=== PATIENT | female | born 1950 | race Caucasian/White ===

== ENCOUNTER 2025-06-13 15:17 | Outpatient (AMB) | payer MEDICARE, BC, SELFPAY ==
--- OUTSIDE RECORDS SUMMARY | 2023-11-04 10:45 | XMS_ITS | Continuity of Care Document ---
Author Organization [facility] Address [address], [address] [address] [place] [address] Phone Care Team Providers Care Getter Welder Name Role Phone Darin Mike MD Unavailable Unavailable Darin Mike MD Unavailable Unavailable Allergies, Adverse Reactions, Alerts Substance Reaction Status Criticality PHENYLEPHRINE HCL Active No Informa tion Penicillins DifficultyBreathing Active No Infor mation Medications Medication Instructions Dosage Effective Dates (start - stop) Status Comments NORLIQVA (unknown strength) Not Available - Active POTASSIUM GLUCONATE (unknown strength) Not Available - Active NEXIUM (unknown strength) Not Available - Active MILK THISTLE (unknown strength) Not Available - Active MAGNESIUM (unknown strength) Not Available - Active GABAPENTIN (unknown strength) Not Available - Active CRANBERRY (unknown strength) Not Available - Active ATORVALIQ (unknown strength) Not Available - Active ARTHRITIS HOT PAIN RELIEF (unknown strength) Not Available - Active ALLOPURINOL (unknown strength) Not Available - Active Procedures Procedure Date NASAL/SINUS ENDOSCOPY, SURG OFFICE/OUTPATIENT VISIT, [facility] Advance Directives Directive Yes / No Effective Date File Name No Information Encounters Encounter Description Practice Location Reason(s) For Visit Diagnoses Date Provider Providers Copied on Encounter OFFICE/OUTPAT IENT VISIT, [facility], [address], [address] [address], [place], [place], [id number], [place] tel:[phone] [facility] Nosebleed (chief complaint) EpistaxisDeviated septum Rashid Webster. [address] [address], [place], [place], [id number] , [place]. tel: [phone] Consulting Provider: Darin Mike MD M, [address] [address], [place], [address]. tel:[phone] Family History Family Member Type Diagnosis Age At Onset Sister Problem (finding) Hypertension Mother Problem (finding) Stroke Sister Problem (finding) Cancer Sister Problem (finding) Cardiovascular disease Mother Problem (finding) Cancer Mother Problem (finding) Hyperthyroidism Father Problem (finding) Cancer Payers Payer name Insurance type Covered constitution party ID Clementine briseno(s) [facility] [id number] Social History Type Description Quantity Date Captured Comments Alcohol Use Details Unknown Caffeine Use Details Unknown Tobacco Use Status No Information Smoking Status No Information Sex Female Vital Signs Date / Time: Height Weight BMI Pulse Rate Blood Pressure Temperature Respiratory Rate Body Surface Area Head Circumference Head Circ. Percentile Wt./Raphael. Percentile BMI percentile Pulse Ox Inhaled Ox 2:51 PM 70.00 in 118.841 kg (262.00 lbs) 37.5 9 kg/m eter (2) 2.42 meter(2) Chief Complaint And Reason For Visit From encounter dated '11/04/2023 14:45'. Nosebleed (chief complaint) Reason For Referral Reason For Referral No Information History Of Present Illness Encounter Date Complaint History Of Prese nt Illness Nosebleed Functional Status Date Functional Assessmen t No Information Instructions Date Instruction Additional Infor mation No Information Assessments Type Assessment Date assessment Epistaxis assessment Deviated septum Mental Status Date Cognitive Assessment Normal Orientation Patient Care Teams Name Effective Dates (start - stop) Status Members No Information
--- NOTE | 2025-06-13 15:44 | A.OFFPC_ITS ---
Vital Signs 06/13/25 16:05 Height 4 ft 11 in Weight 120 lb BMI 24.2 BP 122/72 Blood Pressure Location Rt brachial Position Sitting Respiration 12 Pulse 82 Pulse Source Pulse Oximeter Temp 97.9 F Temp Source Oral Pulse Oximetry (%) 98 Oxygen Delivery Method Room Air Intake Visit Reasons: CPE? Intake Note: New patient visit Neighborhood Aide Required: No Allergies No Known Allergies Allergy (Verified 06/13/25 16:02) Tobacco use date assessed: 06/13/25 Fall risk assessment: No Falls in past year Last assessed Fall Risk: 06/13/25 Dental Screening Dental Screen Date: 06/13/25 Did you have a dental visit in the last 12 months?: Yes Did you have a dental problem in the last 6 months where you did not have access to dental care?: No Was dental information given to patient?: Patient has dentist HPI HPI Comments History of Present Illness Details The patient is a 74 year old female with a past medical hsitory of ADHD, depression, pernicious anemia, melanoma, urinary incontinence, rosacea, osteopenia presenting to [facility]. Transfer from [facility]. Seen in December. Prior to this [facility] ADHD on wellbutrin. Still has c/o fatigue brain fog, fatigue Happy dermatology-h/o right arm melanoma. Q4 months Osteopenia-was on evista. Follows with GI-Dr Huggins. Pernicious anemia. On B12 supplement Cognitive change-saw [facility] ger[facility] clinic. Had MRI with chronic small vessel disease. 09/2024. She then saw the [facility] and was told she was doing well and no follow up was necessary Opthalmology [facility] History of endometrial ablation 2004. Does not see gynecology anymore EG/Colonoscopy Dr Huggins 2020-5 year recall Stopped mammos in 2017 DXA 10/01/2023-osteopenia pCV 13 2020 Pneumo 23 in 2018 Had flu and COVID vaccine 04/2025 ROS CONSTITUTIONAL: Denies weight loss, fever and chills. HEENT: Denies changes in vision and hearing. RESPIRATORY: Denies SOB and cough. CV: Denies palpitations and CP GI: Denies abdominal pain, nausea, vomiting and diarrhea. : Denies dysuria and urinary frequency. MSK: Denies new myalgia and joint pain. SKIN: Denies rash and pruritus. NEUROLOGICAL: Denies headache PSYCHIATRIC: Denies recent changes in mood. PHYSICAL EXAM: GENERAL: Alert and oriented x 3. NAD EYES: EOMI. Anicteric. HENT: Moist mucous membranes. No scleral icterus. No cervical lymphadenopathy. LUNGS: Clear to auscultation bilaterally. CARDIOVASCULAR: Regular rate and rhythm.+ No murmur. No JVD. ABDOMEN: Soft, non-tender +bs EXTREMITIES: No edema. Non-tender. SKIN: No rashes or lesions. Warm. NEUROLOGIC: No focal neurological deficits. CN II-XII grossly intact PSYCHIATRIC: Cooperative. Appropriate mood and affect [facility] Social History Housing: House Patient Tobacco Use Status: Never used Tobacco e-Cigarette/Vaping Use: Never Used Second Hand Smoke Exposure: No service: No Current occupational status: employed and retired Cognitive needs: No Hearing needs: No Vision needs: No Questionnaire PHQ-9 Over the last 2 weeks, how often have you been bothered by any of the following problems? 1. Little interest or pleasure in doing things: not at all 2. Feeling down, depressed, or hopeless: not at all 3. Trouble falling or staying asleep, or sleeping too much: not at all 4. Feeling tired or having little energy: several days 5. Poor appetite or overeating: several days 6. Feeling bad about yourself - or that you are a failure or have let yourself or your family down: not at all 7. Trouble concentrating on things, such as reading the newspaper or watching television: several days 8. Moving or speaking so slowly that other people could have noticed. Or the opposite - being so fidgety or restless that you have been moving around a lot more than usual: not at all 9. Thoughts that you would be better off or of hurting yourself in some way: not at all Total score: 3 Depression Screening Interpretation: Negative Depression Screening Done: Yes 09815 - PHQ-9 Billing: Yes Source: Developed by Drs. Nils Clark, Gifty Valdes, Kevin Jernigan and colleagues, with an educational janes from [employer]. Thrive Questionnaire Date Thrive assessed: 06/06/25 I am a: Patient What is your living situation today?: I have a steady place to live Within the past 12 months, did the food you bought not last and you didn't have the money to get more?: Never true Within the past 12 months, did you worry whether your food would run out before you got money to buy more?: Never true Do you have trouble paying for medicines?: No Do you have trouble getting transportation to medical appointments?: No Do you have trouble paying your heating and electricity bill?: No Do you have trouble taking care of your child, family member or friend?: No Do you have trouble with day-to-day activities such as bathing, preparing meals, shopping, managing finances, etc.?: No Are you currently unemployed and looking for a job?: No Are you interested in more education?: No Please select the resources that you would like help with: None Currently or been in a relationship where the following occur: No concerns reported THRIVE Score: 0 AUDIT C Alcohol Use Questionnaire (AUDIT-C) 1. How often do you have a drink containing alcohol?: Never 3. How often do you have six or more drinks on one occasion?: Never Total Score: 0 FLOR[place]-7 AMB Questionnaire FLOR[place]-7 Feeling nervous, anxious, or on edge: 0 = Not at all Not being able to stop or control worryin = Not at all Worrying too much about different things: 0 = Not at all Trouble relaxin = Not at all Being so restless that it is hard to sit still: 0 = Not at all Becoming easily annoyed or irritable: 0 = Not at all Feeling afraid as if something awful might happen: 0 = Not at all Total [place]-7 score (0-4 normal; 5-9 mild; 10-14 moderate; 15-21 severe): 0 Source: Developed by Drs. Nils Clark, Gifty Valdes, Kevin Jernigan and colleagues, with an educational janes from [employer]. Physical exam (Primary Care) Vital Signs: Last Vital Signs Temp 97.9 F 06/13/25 16:05 Pulse 82 06/13/25 16:05 Resp 12 06/13/25 16:05 BP 122/72 06/13/25 16:05 Pulse Ox 98 06/13/25 16:05 Oxygen Delivery Method Room Air 06/13/25 16:05 BMI result Body Mass Index 24.2 Tobacco/Smoking Status: Tobacco use Status Tobacco use date assessed 06/13/25 06/13/25 16:08 Patient Tobacco Use Status Never used Tobacco 06/13/25 16:08 e-Cigarette/Vaping Use Never Used 06/13/25 16:08 PHQ-9: PHQ-9 Score PHQ-9: Total score 3 06/13/25 16:08 Depression Screening Interpretation: Negative Thrive Assessment: Date of Thrive Assessment Date Thrive assessed 06/06/25 06/13/25 15:44 Currently or been in a relationship where the following occur: No concerns reported Coding Level of Care Code New Pt Level 4 (57766) Complex EM visit Add On G2211 Diagnoses Establishing care with new doctor, encounter for Z76.89 Attention deficit hyperactivity disorder (ADHD), unspecified ADHD type F90.9 Attention deficit-hyperactivity disorder type: unspecified Heart murmur R01.1 Brain fog R41.89 Osteopenia, unspecified location M85.80 Osteopenia location: unspecified Pernicious anemia D51.0 Additional Codes PHQ-9 - 81313 - PHQ-9 Billing: Yes ([id number]) Assessment & Plan Assessment & Plan (1) Establishing care with new doctor, encounter for: Code(s): Z76.89 - Persons encountering health services in other specified circumstances (2) ADHD: Code(s): F90.9 - Attention-deficit hyperactivity disorder, unspecified type Category: Medical Qualifiers: Attention deficit-hyperactivity disorder type: unspecified Qualified Code(s): F90.9 - Attention-deficit hyperactivity disorder, unspecified type (3) Heart murmur: Code(s): R01.1 - Cardiac murmur, unspecified Category: Medical (4) Brain fog: Code(s): R41.89 - Other symptoms and signs involving cognitive functions and awareness Category: Medical (5) Osteopenia: Code(s): M85.80 - Other specified disorders of bone density and structure, unspecified site Category: Medical Qualifiers: Osteopenia location: unspecified Qualified Code(s): M85.80 - Other specified disorders of bone density and structure, unspecified site (6) Pernicious anemia: Code(s): D51.0 - Vitamin B12 deficiency anemia due to intrinsic factor deficiency Category: Medical Plan 74 year old female to establish care Past medical, surgical, social reviewed Depression has been stable on wellbutrin Percinious anemia-continue b12. Check levels. referral placed GI Heart murmur-baseline echo ordered. Orders: Orders XR DEXA axial skeleton 4 Months M85.80 - Other specified disorders of bone density and structure, unspecified site Vitamin B12 and Folate 06/13/25 D51.0 - Vitamin B12 deficiency anemia due to intrinsic factor deficiency, F90.9 - Attention-deficit hyperactivity disorder, unspecified type, R41.89 - Other symptoms and signs involving cognitive functions and awareness, Z13.220 - Encounter for screening for lipoid disorders, Z13.228 - Encounter for screening for other metabolic disorders Vitamin D 1,25 dihydroxy 06/13/25 D51.0 - Vitamin B12 deficiency anemia due to intrinsic factor deficiency, F90.9 - Attention-deficit hyperactivity disorder, unspecified type, R41.89 - Other symptoms and signs involving cognitive functions and awareness, Z13.220 - Encounter for screening for lipoid disorders, Z13.228 - Encounter for screening for other metabolic disorders IRON PROFILE 06/13/25 D51.0 - Vitamin B12 deficiency anemia due to intrinsic factor deficiency, F90.9 - Attention-deficit hyperactivity disorder, unspecified type, R41.89 - Other symptoms and signs involving cognitive functions and awareness, Z13.220 - Encounter for screening for lipoid disorders, Z13.228 - Encounter for screening for other metabolic disorders Hemoglobin A1c 06/13/25 D51.0 - Vitamin B12 deficiency anemia due to intrinsic factor deficiency, F90.9 - Attention-deficit hyperactivity disorder, unspecified type, R41.89 - Other symptoms and signs involving cognitive functions and awareness, Z13.220 - Encounter for screening for lipoid disorders, Z13.228 - Encounter for screening for other metabolic disorders CA echo transthoracic complete 06/13/25 R01.1 - Cardiac murmur, unspecified Lipid Panel 06/13/25 D51.0 - Vitamin B12 deficiency anemia due to intrinsic factor deficiency, F90.9 - Attention-deficit hyperactivity disorder, unspecified type, R41.89 - Other symptoms and signs involving cognitive functions and awareness, Z13.220 - Encounter for screening for lipoid disorders, Z13.228 - Encounter for screening for other metabolic disorders TSH reflex Free T4 06/13/25 D51.0 - Vitamin B12 deficiency anemia due to intrinsic factor deficiency, F90.9 - Attention-deficit hyperactivity disorder, unspecified type, R41.89 - Other symptoms and signs involving cognitive functions and awareness, Z13.220 - Encounter for screening for lipoid disorders, Z13.228 - Encounter for screening for other metabolic disorders Complete Blood Count Auto Diff 06/13/25 D51.0 - Vitamin B12 deficiency anemia due to intrinsic factor deficiency, F90.9 - Attention-deficit hyperactivity disorder, unspecified type, R41.89 - Other symptoms and signs involving cognitive functions and awareness, Z13.220 - Encounter for screening for lipoid disorders, Z13.228 - Encounter for screening for other metabolic disorders Comprehensive Met. Panel 06/13/25 D51.0 - Vitamin B12 deficiency anemia due to intrinsic factor deficiency, F90.9 - Attention-deficit hyperactivity disorder, unspecified type, R41.89 - Other symptoms and signs involving cognitive functions and awareness, Z13.220 - Encounter for screening for lipoid disorders, Z13.228 - Encounter for screening for other metabolic disorders Lyme IgG/IgM w/reflex to WB 06/13/25 D51.0 - Vitamin B12 deficiency anemia due to intrinsic factor deficiency, F90.9 - Attention-deficit hyperactivity disorder, unspecified type, R41.89 - Other symptoms and signs involving cognitive functions and awareness, Z13.220 - Encounter for screening for lipoid disorders, Z13.228 - Encounter for screening for other metabolic disorders UA CC w/rflx Micro + Cult 06/13/25 D51.0 - Vitamin B12 deficiency anemia due to intrinsic factor deficiency, F90.9 - Attention-deficit hyperactivity disorder, unspecified type, R41.89 - Other symptoms and signs involving cognitive functions and awareness, Z13.220 - Encounter for screening for lipoid disorders, Z13.228 - Encounter for screening for other metabolic disorders MM tomosynthesis screening BI 06/13/25 Z12.31 - Encounter for screening mammogram for malignant neoplasm of breast Referrals Gastroenterology Referral K63.5 - Polyp of colon, Z12.11 - Encounter for screening for malignant neoplasm of colon
[2025-06-13 16:05] VITALS: BP 122/72; PULSE 82; RESP 12; TEMP 36.6; O2SAT 98; BMI 24.2
--- OUTSIDE RECORDS SUMMARY | 2025-06-13 19:44 | XMS_ITS | Patient Health Record ---
Author Organization [facility] Address [address] [place] [address] Support Name Relationship Address Phone AMI IGNACIO Guarantor Unknown [phone] Reason For Referral No Information Medications Medication SIG (Take, Route, Fr equency, Duration) Notes Start Date End Date Status Vagifem 10MCG 1 Vaginal TWICE A WE EK; Duration: -3 Alberto-MJ 07/28/2011 Active Adderall 30MG 1 ORAL DAILY; Duration: -3 Alberto-MJ 1 Active Wellbutrin SR 150MG 1 ORAL twice daily; Duration: -3 Alberto-MJ 07/28/2011 Active Vitamin D3 1000 IU 1 ORAL daily; Duration: -3 Alberto-MJ 07/17 Active Vitamin B-12 100MCG 1 ORAL DAILY; Duration: -3 Alberto-MJ 07/2011 Active Problems Problem Type SNOMED Code ICD Code Onset Dates Problem Status W/U Status Risk Notes Problem Depressive disorder (55506578) Depressive disorder, not elsewhere classified (311) Active confirmed Major Problem Menopausal symptom (07645920) Symptomatic menopausal or female climacteric states (627.2) Active confirmed Major Problem Postmenopausal atrophic vaginitis (38795007) Postmenopausal atrophic vaginitis (627.3) Active confirmed Diag Problem Gynecological examination normal ([id number]) Routine gynecological examination (V72.31) Active confirmed Major Problem Screening for malignant neoplasm of colon (843803564) Special screening for malignant neoplasms, colon (V76.51) Active confirmed Major Plan Of Treatment No Information
--- OUTSIDE RECORDS SUMMARY | 2025-06-13 19:44 | XMS_ITS | Clinical Summary ---
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 Active raloxifene (EVISTA) 60 mg tablet Take 60 mg by mouth daily. Active buPROPion (WELLBUTRIN XL) 150 MG ER 24 hr tablet Take 150 mg by mouth daily. Active cholecalciferol (VITAMIN D3) 10,000 unit tablet Take 10,000 Units by mouth daily. Active Active Problems Problem Noted Date Diagnosed Date Memory change 04/27/2025 Encounters Date Type Department Care Team Description 04/27/2025 10:30 AM EDT Office Visit [facility] [address] [place] [address] Nabor Power DO Memory change (Primary Dx); Encounter for geriatric assessment; Encounter for medication review; Snoring; Encounter for support to caregiver from Last 3 Months Social History Tobacco Use Types Packs/Day Years Used Date Smoking Tobacco: Never Smokeless Tobacco: Never Tobacco Cessation:Counseling Given: Not Answered Alcohol Use Standard Drinks/Week Comments Never 0 (1 standard drink = 0.6 oz pur e alcohol) Education Answer Date Recorded Are you interested in more education? Not on ernesto e 10/12/2023 Are you concerned about learning? Not on file 10/12/2023 No 10/12/2023 No 10/12/2023 Digital Access Answer Date Recorded No 10/12/2023 No 10/12/2023 Reliable internet access at home? Not on file 10/12/2023 Device with a working camera? Not on file Intimate Partner Violence Answer Date R ecorded Are you denied basic needs s uch as food, clothing, or medical care? No 10/12/2023 In the past 12 months have y ou been in a relationship with a person who hurts, threatens, or tries to control you? No 10/12/2023 Are you denied basic needs s uch as food, clothing, or medical care? No 10/12/2023 In the past 12 months have y ou been in a relationship with a person who hurts, threatens, or tries to control you? No 10/12/2023 Comments Unknown Sex and Gender Information Value Date Recorded Sex Assigned at Female 10/12/2023 7:46 PM EST Legal Sex Female 1:18 PM EDT Gender Identity Female 10/12/2023 7:46 PM EST Sexual Orientation Straight 10/12/2023 7: 46 PM EST Last Filed Vital Signs Vital Sign Reading Time Taken Comments Blood Pressure 108/60 04/27/2025 10:33 AM EDT Pulse 75 04/27/2025 10:33 AM EDT Temperature 37.1 C (98.8 F) 10/12/2023 7:31 PM EST Respiratory Rate 20 10/12/2023 7:31 PM EST Oxygen Saturation 100% 04/27/2025 10:33 AM EDT Inhaled Oxygen Concentration - - Weight 53.5 kg (118 lb) 04/27/2025 10:33 AM EDT Height 149.9 cm (4' 11 ) 10/12/2023 7:31 PM EST Body Mass Index 23.83 10/12/2023 7:31 PM EST Plan of Treatment Health Maintenance Due Date Last Done Comments Adult Td,Tdap Booster 1952 LIPID PANEL 1952 HEPATITIS C SCREENING 1970 MAMMOGRAM 1992 COLOGUARD 1997 COLONOSCOPY 1997 COLORECTAL CANCER SCREENING 1997 FIT TEST 1997 FOBT 1997 SIGMOIDOSCOPY 1997 VIRTUAL COLONOSCOPY 1997 PNEUMOCOCCAL VACCINES (50+ years) (1 of 1 - PCV) 2002 ZOSTER VACCINES (1 of 2) 2002 OSTEOPOROSIS SCREENING INITI AL (ONE-TIME) 2017 INFLUENZA VACCINE (#1) 2025 COVID-19 VACCINE (1 - 2024-2 6 season) 2025 DEPRESSION SCREENING 04/26/2026 04/26/2025, 04/26/2025 RSV VACCINE (1 - 1-dose 75+ series) 12/09/2027 SMOKING STATUS SCREENING (On ce After 26 Yrs) Completed 04/27/2025 HEPATITIS A VACCINES Aged Out No long er eligible based on patient's age to complete this topic HIB VACCINES Aged Out No longer eligi ble based on patient's age to complete this topic MENINGOCOCCAL VACCINES (ACWY) Aged Out No longer eligible based on patient's age to complete this topic MENINGOCOCCAL VACCINES (B) Aged Out N o longer eligible based on patient's age to complete this topic Medical Devices Not on file Insurance [employer] SUPPLEMENT MEDICARE PART A & B Member Subscriber Plan / Payer (Ef fective 2020-Present) Name:Laina Valdes Member ID:[id number] Relation to Subscriber:Self Name:Laina Valdes Subscriber ID:[id number] Payer ID:[id number] Group ID:Not on file Type:Medicare Address: [facility] [employer] [facility] [address] [place] [address] [employer] MEDEX SUPPLEMENT MEDICARE PART A & B Member Subscriber Plan / Payer (Ef fective 2020-Present) Name:Laina Valdes Member ID:[id number] Relation to Subscriber:Self Name:Laina Valdes Subscriber ID:[id number] Payer ID:[id number] Group ID:Not on file Type:Medicare Address: [facility] [employer] [facility] [address] [place] [address] [employer] MEDEX SUPPLEMENT [employer] SUPPLEMENT [employer] MEDEX SUPPLEMENT MEDICARE PART A & B [employer] MEDEX SUPPLEMENT MEDICARE PART A & B Member Subscriber Plan / Payer (Ef fective 2020-Present) Name:Laina Valdes Member ID:[id number] Relation to Subscriber:Self Name:Laina Valdes Subscriber ID:[id number] Payer ID:[id number] Group ID:Not on file Type:Medicare Address: [employer] [address] [place] [address] MEDEX SUPPLEMENT MEDICARE PART A & B Member Subscriber Plan / Payer (Ef fective 2020-Present) Name:Laina Valdes Member ID:[id number] Relation to Subscriber:Self Name:Laina Valdes Subscriber ID:[id number] Payer ID:[id number] Group ID:Not on file Type:Medicare Address: [facility] [employer] [facility] [address] [place] [address] [employer] MEDEX SUPPLEMENT [employer] MEDEX SUPPLEMENT MEDICARE PART A & B Care Teams Graining Operator Relationship Specialty Start Date End Date Shaniqua Rockwell MD [address] [place] [address] [id number] PCP - General Internal Medicine 04/27/25 Nabor Power DO [address] [place] [phone] [email or web address] Geriatric Medicine 04/14/25 [facility] [address] [address] Nurse Practitioner 04/27/25 Additional Source Comments The information contained in this document represents components of the legal health record. It is not the complete legal health record.[facility]
--- OUTSIDE RECORDS SUMMARY | 2025-06-13 19:44 | XMS_ITS | Data Portability ---
Author Organization [place] [facility],, NELLY BURNETTE MD Address [address] [address] Care Team Providers Care External Relations Manager Name Role Phone NIK ONEAL OTHER Assessment No assessment recorded. Plan of Treatment Reminders Order Date Submit Date Provider Last Modified By Organization Details Last Modified Time Details Appointments None recorded. Lab pap test, thinprep, cervical 2016 017 [facility] Pathology [facility], Cytopathology Service, [address] [place], [address], 7 15:40:54 fecal occult blood, stool 2016 017 [facility]O In-Office Order, Internal Use Only DO Not Attach Compendium DO Not Attach Compendium, Do Not Delete/merge, [id number] 7 09:17:58 cytology, Pap smear 2012 013 [facility] Pathology [facility], Cytopathology Service, [address] [place], [address], 3 05:14:34 occult blood, screen 2012 013 HYDRO In-Office Order, Internal Use Only DO Not Attach Compendium DO Not Attach Compendium, Do Not Delete/merge, [id number] 3 05:14:35 Referral None recorded. Procedures None recorded. Surgeries None recorded. Imaging MAMMO, screening , digital, bilateral 2016 017 [facility] Orders, [address], [place], [address], 7 17:54:07 bone density 2016 017 [facility] Orders, [address], [place], [address], 7 16:57:16 MAMMO, screening , digital, bilateral 2012 013 [facility] Orders, [address], [place], [address], 3 17:29:56 bone density study 2012 013 [facility] Orders, [address], [place], [address], 3 17:28:50 Medication Orders raloxifen e 60 mg tablet 2016 017 INTERFACE [id number], [address] [facility], [place], [address], 7 15:28:12 Patient TargetsNo targets recorded. Patient Instructions Encounter Date Encounter Id Patient Instructions Last Modified By Organization Details Last Modified Time 02/15/2013 [id number] learning about breast cancer screening MARIA ISABEL Not available 03/11/2013 05:14:35 She appears to b e doing well, other than the depression, weight loss and fatigue. She will follow up with her PCP concerning the fatigue and weight loss. She has not had a bone density test, will order. She is advised to get 1500 mg of calcium daily into her diet and supplements combined. There is a health benefit with adequate vitamin D supplementation to at least 400 units daily, daily aerobic exercise of 30 minutes, and stress reduction. Monthly self breast exam was taught, and stressed, and is advised to call if she discovers any new mass in the breast. Seat belt use for herself and passengers are advised. There are significant health benefits of becoming and remainig fit, with an optimal BMI. There is a potential reduction in chronic discomfort, diminished risks of hypertension, diabetes, and heart disease with the proper weight management. With a recommended BMI there can be improved mobility as she ages. Strategies to reach and maintain her target weight were discussed in detail. Not available 02/15/2013 15:51:22 03/22/2013 [id number] We discussed her new diagnosis of osteopenia. We reviewed the results of her bone density test, with reference to the computer images. We discussed the way that standard deviation is used for diagnosis, and what this means to her as she ages. Adequate calcium intake of 1500 mg daily, weight bearing exercise three times a week, and vitamin D supplementation of at least 400 units daily is suggested. She is advised to avoid tobacco, coffee, and steroids if possible. Benefits of an active lifestyle discussed as well. All questions answered. We discussed the different forms of medical treatment for osteoporosis, in case she might need this in the future. She will repeat the bone density testing in 2 years to assess her progress.She is aware that if her bone density diminished significantly in the intervening 2 years she may need medical therapy at that time. She is encouraged to try this preventive therapy first. Return for routine annual exam as scheduled. Face to face discussion for 25 minutes. Not available 03/23/2013 11:30:45 12/01/2016 [id number] learning about m ood disorders [email or web address] Not available 12/01/2016 09:14:01 She is here for annual exam, has not been here since 2012. She feels well. She has a history of vitamin d deficiency and osteopenia, is due for a bone density. She does take vitramin d 2000 unitls on and off, not daily. Check bone density. She declines vitanin d check at this time. She notes she has shortness of breath when climbing a stair, and her brother has SOB also. Advised to check with her PCP to see if she should be tested for alpha one antitrip. def. She appears to be doing well. She is advised to get 1500 mg of calcium daily into her diet and supplements combined. There is a health benefit with adequate vitamin D supplementation to at least 400 units daily, daily aerobic exercise of 30 minutes, and stress reduction. Monthly self breast exam was taught, and stressed, and is advised to call if she discovers any new mass in the breast. Seat belt use for herself and passengers are advised. There are significant health benefits of becoming and remainig fit, with an optimal BMI. There is a potential reduction in chronic discomfort, diminished risks of hypertension, diabetes, and heart disease with the proper weight management. With a recommended BMI there can be improved mobility as she ages. Strategies to reach and maintain her target weight were discussed in detail. Not available 12/01/2016 09:36:08 01/16/2017 [id number] She is here to discuss her recent bone density which showed progressively worsening osteopennia over the past 10 years. She has lost one inch in height so far. We discussed her diagnosis of worsening osteopenia. We reviewed the results of her bone density test, with reference to the computer images. We discussed the way that standard deviation is used for diagnosis, and what this means to her as she ages. Adequate calcium intake of 1500 mg daily, weight bearing exercise three times a week, and vitamin D supplementation of at least 400 units daily is suggested. She is advised to avoid tobacco, coffee, and steroids if possible. Benefits of an active lifestyle discussed as well. All questions answered. We discussed the different forms of medical treatment for osteoporosis, in case she might need this in the future. She gets adequate calcium, takes vitamin d daily, exercised and does weight lifting dailoy, has no risk factors to amend. After discussion of her worsening results despite doing everything right she elects to begin Evista. We discussed having her begin to take hormone replacement therapy. .We discussed the stated risks of one in 10,000 of development of a blood clot/DVT/PE that could be life threatening. After a long discussion of the potential risks and benefits of HRT she elects to begin HRT. All questions answered. Rx for Evista is called in to the pharmacy. Call if any vaginal bleeding occurs upon initiation of HRT, or at any time postmenopausally. She will repeat the bone density testing in 2 years to assess her progress.She is aware that if her bone density diminished significantly in the intervening 2 years she may need to increase medical therapy at that time.. Return for routine annual exam as scheduled. Face to face discussion for 25 minutes. Not available 01/16/2017 15:32:44 Reason for Referral None Reported. Results Created Date Observation Date Name Description Value Unit Range Abnormal Flag Note LastModifiedBy Organization Detail LastModifiedTime 12/02/19 17 12/01/2016 fecal occul t blood , stool Occult Blood negati ve Not Available In-Office Order Internal Use Only DO Not Attach Compendium DO Not Attach Compendium, Do Not Delete/merge, [id number] 12/01/2016 08:51:12 02/16/20 13 02/15/2013 occul t blood , carl n Occult Blood negati ve Not Available In-Office Order Internal Use Only DO Not Attach Compendium DO Not Attach Compendium, Do Not Delete/merge, [id number] 02/15/2013 14:32:49 02/16/20 13 02/15/2013 pap1c ase [id number] thinp rep Pap and cell block : negat raffi for squam ous intra epith elial lesio n and malig giovanny . atrop hy with parti ally obscu ring infla mmati on IS prese nt. hall laura cuevas , CT(as cp) (case scretana desmond 02 21 2013) leoncio mosqueda M.D., patho yvonne dhillon (case elect maurice alfaro jeffrey d 02 28 2013) adequ acy: satis facto ry. . sourc e: thinp rep Pap, cervi serg, image d clini serg infor matio n: HPV if diagn osis of ASCUS . menop ause * cytop athol ogy servi [facility] provi ded by [facility] at the above addre ss. Not Available [facility], Cytopathology Service [address] [place], [address], 03/01/2013 14:57:21 12/02/19 17 12/01/2016 pap, LB ble2foqh ThinP rep Pap, Image d: NEGAT RAFFI FOR SQUAM OUS INTRA EPITH ELIAL LESIO N AND MALMORALES GUILLEN . Kelyl Wynn ams, CT( CP) (Case elect maurice alfaro jeffrey d 12 03 2016) ADEQU ACY: Satis facto ry. Endoc ervic al/tr ansfo rmati on zone compo nent prese nt. SOURC E: ThinP rep Pap HPV IF ASCUS , Cervi serg, Image d: CLINI SERG INFOR MATIO N: HPV If Diagn osis of ASCUS . LPS 3 NEG Not Available [facility], Cytopathology Service [address] [place], [address], 12/03/2016 15:40:54 03/15/20 13 03/15/2013 MAMMO , scree mary, digit al, bilat eral No observ ation record ed. [facility] Orders [address], [place], [address], 03/16/2013 10:47:39 03/15/20 13 03/15/2013 bone densi ty study No observ ation record ed. [facility] Orders [address], [place], [address], 03/16/2013 10:47:40 03/18/20 13 03/15/2013 MAMMO , scree mary, digit al, bilat eral No observ ation record ed. [address] [facility] Orders [address], [place], [address], 03/18/2013 13:14:47 03/20/20 14 03/20/2014 imagi ng/di agnos tic resul t No observ ation record ed. [address] [facility] Orders [address], [place], [address], 03/20/2014 13:06:54 01/09/20 17 01/08/2017 bone densi ty No observ ation record ed. [facility] (Out[facility]) [address] [place], [address], 01/16/2017 14:58:37 01/09/20 17 01/08/2017 MAMMO , scree mary, digit al, bilat eral No observ ation record ed. [facility] ([facility]) [address] [place], [address], 01/16/2017 14:58:54 Result Notes None recorded. Problems Name Problem SNOMED Code Status Onset Date Resolution Date Notes Provider Name and Address Organization Details Recorded Time Senile osteopenia 74396570 Active Not Available [facility] 3 03:01:07 Menopausal syndrome 117201601 Active Not Available [facility] 3 03:01:07 Abnormal weight loss 563879182 Active Not Available [facility] 3 03:01:07 Depressive disorder 26614198 Active Not Available [facility] 3 03:01:07 Vitamin D deficiency 40261178 Active Not Available [facility] 3 03:01:07 Problem Notes None recorded. Procedures Surgical History Date Name Laterality Status Provider Name and Address Organization Details Recorded Time 3 Most Recent Bone Density completed Elsa Saldana in [facility], 11/25/2016 14:09:08 5 Other completed Elsa Saldana in [facility], 02/15/2013 14:31:51 Imaging Results None recorded. Procedure Notes None recorded. Medical Equipment None Reported. Allergies No known drug allergies Medications Name Sig Start Date Stop Date Status Note LastModified by Organization Details LastModified Time Adderall 30 mg tablet Take 1 tablet every day by oral route. active Not Available Not Available No t Available dextroamphet amine-amphet amine ER 20 mg 24hr capsule,exte nd release active Not Available Not Available N ot Available raloxifene 60 mg tablet TAKE 1 TABLET DAILY active Not Available Not Available No t Available doxycycline hyclate 20 mg tablet active Not Available Not Available No t Available bupropion HCl SR 200 mg tablet,12 hr sustained-re lease TAKE 2 TABLETS BY MOUTH EVERY DAY active Not Available Not Available No t Available Afluria [id number] (PF) 45 mcg(15 mcg x 3)/0.5 mL intramuscula r syringe inject 0.5 milliliter intramuscul lorraine active Not Available Not Available No t Available Vitals Date Recorded Heart rate Body weight Body height Body mass index (BMI) Systolic And Diastolic Provider Name and Address Organization Details Last Updated DateTime 12/01/2016 94 /min 13751.22 g 148.59 cm 23.2 kg/m2 125/77 mm[Hg] Laina Saldana in [facility], 12/01/2016 08:24:13 Date Recorded Body height Body weight Body mass index (BMI) Heart rate Systolic And Diastolic Provider Name and Address Organization Details Last Updated DateTime 01/16/2017 148.59 cm 51630.12 g 23.6 kg/m2 92 /min 133/80 mm[Hg] Elsa Saldana in [facility], 01/16/2017 14:55:50 Date Recorded Body height Body weight Body mass index (BMI) Heart rate Systolic And Diastolic Provider Name and Address Organization Details Last Updated DateTime 02/15/2013 152.4 cm 27288.62 6966 g 21.8 kg/m2 85 /min 107/77 mm[Hg] Elsa Hayden [place] - Les in [facility], 02/15/2013 14:31:51 Date Recorded Body height Body weight Body mass index (BMI) Heart rate Systolic And Diastolic Provider Name and Address Organization Details Last Updated DateTime 03/22/2013 152.4 cm 13144.72 3752 g 21.4 kg/m2 106 /min 108/73 mm[Hg] Elsa Saldana in [facility], 03/22/2013 13:49:13 Social History Question Answer Notes LastModified by Organizat ion Details LastModified Time Tobacco Smoking Status Never Smoker Not Available [facility] 06/19/2020 03:19:41 What Is Your Level Of Caffeine Consumption? None [id number] Information not available 06/19/2020 What Type Of Diet Are You Following? REGULAR [id number] Information not available 06/19/2020 Which Illicit Or Recreational Drugs Have You Used? No [id number] Information not available 06/19/2020 Do You Reside In Or Have You Traveled To An Area Where Ebola Virus Transmission Is Active? No [id number] Information not available 06/19/2020 Education 4 Year College Information not available 02/15/2013 How Many Days In The Past Year Have You Had A Heavy Drinking Consumption (4+ Female, 5+ Male)? 0 Information no t available 12/01/2016 High Number Of Sexual Partners No Information not available 12/01/2016 To Which Gender Do You Self-identify? Female Information not available 12/01/2016 Marital Status Informatio n not available 02/15/2013 Are You Sexually Active? No [id number] Information not available 06/19/2020 How Much Tobacco Do You Smoke? No [id number] Information not available 06/19/2020 General Stress Level Medium Information not available 02/15/2013 How Many Years Have You Smoked Tobacco? 0 [id number] Information not available 06/19/2020 Have You Recently (within The Last 12 Weeks, Or During A Current ) Traveled To Or Lived In A Zika-affected Area? No Vinylminttorski Information not available 12/01/2016 Sex: Unknown Functional Status Question Answer Note LastModified by Organizat ion Details LastModified Time What is your level of alcohol consumption? 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 Occasional [id number] Information not available 06/19/2020 Mental Status None recorded. Family History Relationship Description Onset Age of this Age Resolved Age Notes LastModified by Organization Details LastModified Time Mother Malignant neoplastic disease skin (previ ously record ed as Cancer ) [id number] [id number] Not available 06/05/2013 03:01:00 Mother Alzheimer's disease [email or web address] [id number] Not available 06/05/2013 03:01:00 Father Problem cj ia (previ ously record ed as Other) [id number] [id number] Not available 06/05/2013 03:01:00 Father Malignant neoplastic disease skin (previ ously record ed as Cancer ) [id number] [id number] Not available 06/05/2013 03:01:00 Medical History Condition Response High Blood Pressure N Autoimmune Condition N Depression Y History of Ovarian Cancer N Anxiety Disorder Y Arthritis N Infertility N Kidney or Bladder Problems N Osteopenia Y Asthma N Hepatitis N Anesthesia complications N Candidate for MyRisk panel N Lung Disease N Defects or Inherited Disease N BRCA testing in past N History of Cancer Y Endometriosis N Thyroid Problems N GI Problems N Anemia N History of Breast Cancer N Psychiatric Illness Y Diabetes N Headaches or Migraines Y Heart Disease N Hypertension N Osteoporosis N Gynecological History Statement/Question Response If Post Menopausal, Age at Menopause 54 Duration of Flow (days) 0 Age at Menarche 14 Age at First Child 28 Most Recent Bone Density 03/15/2013 Obstetrics History GPAL:G 2 P 2 0 0 2 Type Value Full Term 2 Living 2 Total 2 Immunizations Vaccine Type Date Status Note Provider Nam e and Address Organization Details Recorded Time Tdap 08/17/2009 completed JOÃO Lindquist in [facility], 02/15/2013 14:31:51 influenza, unspecified formulation 08/17/2011 completed JOÃO Lindquist in [facility], 02/15/2013 14:31:51 influenza, unspecified formulation 05/18/2016 completed JOÃO Kelly in [facility], 12/01/2016 08:29:00 VZIG 05/19/2016 completed JOÃO Kelly in [facility], 12/01/2016 08:29:37 Past Encounters Encounter ID Performer Location Encounter Start Date Encounter Closed Date Diagnosis/Indication Diagnosis SNOMED-CT Code Diagnosis ICD10 Code Diagnosis IMO Codes Diagnosis Note [id number] MD NELLY Moore MD [address] [facility] [place] [address] 02/15/2013 14:07:53 02/15/2013 16:10:00 [id number] MD NELLY Moore MD [address] [facility] [place] [address] 03/22/2013 13:43:59 03/23/2013 12:16:52 [id number] MD NELLY Moore MD [address] [facility] [place] [address] 12/01/2016 08:09:06 12/01/2016 11:53:08 Specialized medical examination 13027594 Z04.8 Screening for malignant neoplasm of rectum 940570170 Z12.12 Screening mammography 24 137668 Z12.31 Vitamin D deficiency 347 13982 E55.9 Depressive disorder 3548 9007 F32.0 Senile osteopenia 102760 06 M85.80 [id number] MD NELLY Moore MD [address] [facility] [place] [address] 01/16/2017 14:51:04 01/16/2017 16:02:16 Senile osteopenia 53481331 M85.852 Health Concerns Section Related Observation LastModified by Organization Detai ls LastModified Time None Recorded Concern Status LastModified by Organization Details LastModified Time None Recorded Advance Directives Directive None Recorded Payers Insurance Date Sequence Insurance Name Policy Number Policy Lebron Covered Member ID Lebron Member ID Guarantor Name 04/02/2022 1 *SELF PAY* 04/02/2022 1 [place] [id number] Laina Valdes [id number] Notes Date Note Type Note Provider Name and Address Organization Details Recorded Time 02/15/2013 text/html ROS as noted in the HPI Nelly Burnette MD [address], [place], [address], [place] [facility], 02/15/2013 15:57:29 03/22/2013 text/html ROS as noted in the HPI Nelly Burnette MD [address], [place], [address], [place] [facility], 03/23/2013 11:31:17 12/01/2016 text/html She is here for annual exam, has not been here since 2012. She feels well. She has a history of vitamin d deficiency and osteopenia, is due for a bone density. She does take vitramin d 2000 unitls on and off, not daily. Nelly Burnette MD [address], [place], [address], [place] [facility], 12/01/2016 09:36:35 01/16/2017 text/html She is here to discuss her recent bone density which showed progressively worsening osteopennia over the past 10 years. She has lost one inch in height so far. Nelly Burnette MD [address], [place], [address], [place] [facility], 01/16/2017 15:57:53 OBGyn Episode No OBEpisode recorded.
== END 2025-06-13 16:27 | disposition home or self-care (01) ==
LOC: HO.HMCFM 15:18
PROVIDERS: PCP Internal Medicine; Visit Provider Internal Medicine
DX: Z76.89 Persons encountering health services in other specified circumstances (principal); F90.9 Attention-deficit hyperactivity disorder, unspecified type; R01.1 Cardiac murmur, unspecified; R41.89 Other symptoms and signs involving cognitive functions and awareness; M85.80 Other specified disorders of bone density and structure, unspecified site; D51.0 Vitamin B12 deficiency anemia due to intrinsic factor deficiency

== ENCOUNTER → 2025-06-13 15:17 | Outpatient (BNVA) | payer MEDICARE, BC, SELFPAY | PROVIDERS: PCP Physician Assistant Medical; Visit Provider Internal Medicine | DX: Z76.89 Persons encountering health services in other specified circumstances (principal); F90.9 Attention-deficit hyperactivity disorder, unspecified type; R01.1 Cardiac murmur, unspecified; R41.89 Other symptoms and signs involving cognitive functions and awareness; M85.80 Other specified disorders of bone density and structure, unspecified site; D51.0 Vitamin B12 deficiency anemia due to intrinsic factor deficiency; Z85.820 Personal history of malignant melanoma of skin; Z13.31 Encounter for screening for depression | CPT/HCPCS: 96127; 99202 ==

== ENCOUNTER 2025-06-15 09:11 | Outpatient (REF) | payer MEDICARE, BC, SELFPAY ==
--- OUTSIDE RECORDS SUMMARY | 2023-11-04 10:45 | XMS_ITS | Continuity of Care Document ---
Author Organization [facility] Address [address], [address] [address] [place] [address] Phone Care Team Providers Care Plate Washer Name Role Phone Darin Mike MD Unavailable [...] Procedure Date NASAL/SINUS ENDOSCOPY, SURG OFFICE/OUTPATIENT VISIT, [facility] Advance Directives Directive Yes / No Effective Date File Name No Information Encounters Encounter Description Practice Location Reason(s) For Visit Diagnoses Date Provider Providers Copied on Encounter OFFICE/OUTPAT IENT VISIT, [facility], [address], [address] [address], [place], [place], [id number], [place] tel:[phone] [facility] Nosebleed (chief complaint) EpistaxisDeviated septum Rashid Webster. [address] [address], [place], [place], [id number] , [place]. tel: [phone] Consulting Provider: Darin Mike MD M, [address] [address], [place], [address]. tel:[phone] Family History Family Member Type Diagnosis Age At Onset Sister Problem (finding) Hypertension Mother Problem (finding) Stroke Sister Problem (finding) Cancer Sister Problem (finding) Cardiovascular disease Mother Problem (finding) Cancer Mother Problem (finding) Hyperthyroidism Father Problem (finding) Cancer Payers Payer name Insurance type Covered alliance party ID Clementine briseno(s) [facility] [id number] Social History Type Description Quantity Date Captured [...]
--- OUTSIDE RECORDS SUMMARY | 2025-06-15 10:25 | XMS_ITS | Clinical Summary ---
Author Organization [facility] Address [address] [place] [address] [address] [place] [address] Phone Care Team Providers Care Welding Process Engineer Name Role Phone Nabor Power DO Unavailable [phone] Shaniqua Rockwell MD Primary Care Provider Rosibel Parish COLLECTIONS ATTORNEY Unavailable [phone] Allergies Active Allergy Reactions Criticality Noted Date [...] Description 04/27/2025 10:30 AM EDT Office Visit [facility] [address] [place] [address] Nabor Power DO Memory change (Primary Dx); [...] topic Medical Devices Not on file Insurance Ch[employer] MEDEX SUPPLEMENT MEDICARE PART A & B [employer] MEDEX SUPPLEMENT MEDICARE PART A & B [employer] MEDEX SUPPLEMENT [employer] MEDEX SUPPLEMENT [employer] MEDEX SUPPLEMENT MEDICARE PART A & B [employer] MEDEX SUPPLEMENT MEDICARE PART A & B MEDEX SUPPLEMENT MEDICARE PART A & B [employer] MEDEX SUPPLEMENT [employer] MEDEX SUPPLEMENT MEDICARE PART A & B Care Teams Welding Process Engineer Relationship Specialty Start Date End Date Shaniqua Rockwell MD [address] [place] [address] [phone] PCP - General Internal Medicine 04/27/25 Nabor Power DO [address] [place] [id number] [email or web address] Geriatric Medicine 04/14/25 Rosibel Parish [facility] [address] [address] Nurse Practitioner 04/27/25 Additional Source Comments The information contained in this document represents components of the legal health record. It is not the complete legal health record.[facility]
--- OUTSIDE RECORDS SUMMARY | 2025-06-15 10:25 | XMS_ITS | Patient Health Record ---
Author Organization [facility] [facility] Address [address] [place] [address] Support Name Relationship Address Phone AMI IGNACIO Guarantor Unknown [phone] Reason For Referral No Information Medications Medication [...] W/U Status Risk Notes Problem Depressive disorder (01366171) Depressive disorder, not elsewhere classified (311) Active confirmed Major Problem Menopausal symptom (21070961) Symptomatic menopausal or female climacteric states (627.2) Active confirmed Major Problem Postmenopausal atrophic vaginitis (07365264) Postmenopausal atrophic vaginitis (627.3) Active confirmed Diag Problem Gynecological examination normal (143201230622261) Routine gynecological examination (V72.31) Active confirmed Major Problem Screening for malignant neoplasm of colon (682150204) Special screening for malignant neoplasms, colon (V76.51) Active confirmed Major Plan Of Treatment No Information
[2025-06-15 11:21] LABS: MANUAL DIFF FLAG NO
[2025-06-15 11:25] LABS: Hematocrit 41.1 % (37.0-47.0); Hemoglobin 13.1 g/dl (12.0-16.0); Imm Gran Abs Auto 0.01 X10*3/uL (0.00-0.03); Imm Gran Pct Auto 0.2 % (0.0-0.4); Lymphocytes Absolute Auto 2.0 X10*3/uL (1.2-4.9); Mean Corpuscular HGB Conc 31.9 g/dl (31.0-35.0); Mean Corpuscular Hemoglobin 30.0 pg (27.0-33.0); Mean Corpuscular Volume 94.1 fL (80.0-98.0); NRBC Abs Auto 0.000 X10*3/uL (0.0-0.012); NRBC Pct Auto 0.0 /100WBC (0.0-0.2); Platelet Count 281 X10*3/uL (160-400); Red Blood Count 4.37 X10*6/uL (4.20-5.50); White Blood Count 5.4 X10*3/uL (4.8-10.8)
[2025-06-15 11:49] LABS: Alanine Aminotransferase 25 U/L (0-31); Albumin Level 4.5 g/dL (3.5-5.0); Alkaline Phosphatase 57 U/L (39-117); Anion Gap 9 (12-20); Aspartate Amino Transferase 30 U/L (5-31); Blood Urea Nitrogen 14 mg/dL (9-16); Calcium 9.3 mg/dL (8.4-10.2); Carbon Dioxide 29 mmol/L (22-29); Chloride 105 mmol/L (96-108); Cholesterol 208 mg/dL (<200); Estimated Glomerular Filt Rate > 60; HDL Cholesterol 67 mg/dL (>40); Iron 120 mcg/dL (30-160); Percent Iron Saturation 41 % (15-50); Potassium 4.1 mmol/L (3.3-5.1); Sodium 139 mmol/L (135-145); Total Iron Binding Capacity 290 mcg/dL (228-428); Total Protein 7.2 g/dL (6.5-8.0); Triglycerides 106 mg/dL (<150); Unsaturated Iron Binding 170 ug/dL
[2025-06-15 12:01] LABS: Appearance Urine Cloudy; Glucose Urine UA Negative (Negative); PH 8.0 (5.0-9.0); Specific Gravity - Urine 1.015 (1.005-1.025); UMIC TRIGGER UACC YES
[2025-06-15 12:09] LABS: UACC Culture Trigger YES
[2025-06-15 12:10] LABS: Other Crystals Urine Present
[2025-06-15 12:14] LABS: Folate 8.2 ng/mL (> or = 4.0); Vitamin B12 > 2000 pg/mL (200-900)
[2025-06-16 05:48] LABS: Lyme Abs Screen <0.90 index
[2025-06-18 20:19] LABS: VITAMIN D (1,25 OH) D3 54 pg/mL; Vit D (1,25-Dihydroxy) Total 54 pg/mL (18-72); Vitamin D (1,25 OH) D2 <8 pg/mL
== END 2025-06-15 09:12 | disposition home or self-care (01) ==
LOC: HO.WFDLDS 09:11
PROVIDERS: Visit Provider Internal Medicine
DX: Z13.6 Encounter for screening for cardiovascular disorders (principal); Z13.228 Encounter for screening for other metabolic disorders; Z13.220 Encounter for screening for lipoid disorders; Z13.1 Encounter for screening for diabetes mellitus; Z13.21 Encounter for screening for nutritional disorder; D51.0 Vitamin B12 deficiency anemia due to intrinsic factor deficiency; F90.9 Attention-deficit hyperactivity disorder, unspecified type; R41.89 Other symptoms and signs involving cognitive functions and awareness
CPT/HCPCS: 36415; 80053; 80061; 81001; 81003; 82607; 82652; 82746; 83036; 83540; 84443; 85025; 86617; 86618; 87086

== ENCOUNTER → 2025-07-18 12:55 | Outpatient (REF) | payer MEDICARE, SELFPAY ==
--- NOTE | 2025-07-18 12:57 | CA_ITS ---
Transthoracic Echocardiogram Patient (Last, First, Middle): Laina Valdes, Gender: F Date of : 1950 Age: 74 Procedure Date: 07/18/2025 Procedure Type: Transthoracic Echocardiogram Location: OP Height: 149.86 cm Weight: 54.43 kg BSA: 1.48 m2 Heart Rate: bpm BP: 122 / 72 mmHg Boarding Specialist: JUDITH Referring MD: Shaniqua Field MD Symptoms: R01.1 - Cardiac murmur, unspecified Study Quality: Adequate ECG Rhythm: Sinus Conclusions: - The left ventricular systolic function is normal. The calculated ejection fraction is 66% by biplane method. - No obvious valvular pathology seen on this study. Findings Left Ventricle Normal left ventricular cavity size. There is normal left ventricular wall thickness. The left ventricular systolic function is normal. The calculated ejection fraction is 66% by biplane method. There is no evidence of regional wall motion abnormalities. Diastolic function is normal for age. Right Ventricle Normal right ventricular cavity size and systolic function. Atria Both atria are normal in size. Aortic Valve There is a normal trileaflet aortic valve. There is no aortic valve stenosis. There is no aortic valve regurgitation. Mitral Valve The mitral valve appears normal. There is trace mitral valve regurgitation. There is no mitral valve stenosis. Pulmonic Valve The pulmonic valve is likely normal. Tricuspid Valve There is mild tricuspid valve regurgitation. There is no evidence of pulmonary hypertension. Great Vessels The asc aorta is normal in size. Venous The inferior vena cava is normal in size and collapses greater than 50% with inspiration. Pericardium/Pleural There is no evidence of pericardial effusion. Prior Study Comparison No prior study available for comparison. Recommendations, Care & Conclusions No obvious valvular pathology seen on this study. Measurements 2D Linear Measurements IVSd: 0.65 0.6-0.9/0.6-1.0 cm LVIDd: 3.75 3.9-5.3/4.2-5.9 cm LVIDd Index: 2.53 2.4-3.2/2.2-3.1 cm/m2 LVIDs: 2.49 2.0-3.6 cm LVPWd: 0.64 0.7-1.1 cm LA Diam: 2.10 2.7-3.8/3.0-4.0 cm LAIDs Index: 1.42 1.5-2.3 cm/m2 LV Mass: 78.22 67-162/88-224 g LV Mass Index: 52.85 43-95/49-115 g/m2 LVOT Diam: 1.90 3.0+(-)1.3 cm 2D Systolic Function EF 4C: 62.20 >55% EF 2C: 66.60 >55% EF BiP: 65.80 >55% Mitral Valve MV Pk E: 0.58 MV PK A: 0.63 MV Decel Time: 246.00 E/A: 0.90 E'Lateral: 10.30 E'Medial: 8.27 E/E' Med: 7.00 E/E' Lat: 5.60 PHT: 72.00 MVA PHT: 3.06 Decel Sharkey: 2.35 Aortic Valve AoV Pk Doni: 1.32 AoV Mn Doni: 0.90 AoV VTI: 0.28 AoV Pk Grad: 7.00 Aov Mn Grad: 4.00 RAYMOND Cont.VTI: 2.45 LVOT LVOT Pk Doni: 1.19 LVOT Mn Doni: 0.81 LVOT VTI: 0.25 LVOT Pk Grad: 6.00 LVOT Mn Grad: 3.00 LVOT Diam: 1.90 LVOT Area: 2.84 Diastolic Function MV Pk E: 0.58 MV Pk A: 0.63 E/A: 0.90 E'Medial: 8.27 E/E' Med: 7.00 E' Laterial: 10.30 E/E' Lat: 5.60 Right Ventricle TAPSE (mm): 27.30 TVS' Doni: 11.10 Tricuspid Valve TR Pk Doni: 2.00 TR Pk Grad: 16.00 RA Press: 3.00 RVSP: 19.00 Great Vessels Aorta Sinus of Valsalva: 3.68 2.0-3.[address] Ridge: 2.56 1.7-3.4 cm Ao Asc: 3.50 2.1-3.4 cm Updated in Other Vendor System with Status of Final Reg Sanchez MD electronically signed on 07/19/2025 4:07:37 PM with status of Final
--- OUTSIDE RECORDS SUMMARY | 2025-07-18 14:48 | XMS_ITS | Clinical Summary ---
Author Organization [facility] Address [address] [place] [address] Phone Care Team Providers Care Modern Dancer Name Role Phone Nabor Power DO Unavailable [phone] Shaniqua Rockwell MD Primary Care Provider Rosibel Parish BOTTOM PRECIPITATOR OPERATOR Unavailable Allergies Active Allergy Reactions Criticality Noted [...] Description 04/27/2025 10:30 AM EDT Office Visit [facility] [address] [place] [address] Nabor Power DO Memory change (Primary Dx); [...] topic Medical Devices Not on file Insurance [employer] CROSS MEDEX SUPPLEMENT MEDICARE PART A & B [employer] MEDEX SUPPLEMENT MEDICARE PART A & B [employer] MEDEX SUPPLEMENT [employer] CROSS MEDEX SUPPLEMENT [employer] MEDEX SUPPLEMENT MEDICARE PART A & B [employer] MEDEX SUPPLEMENT MEDICARE PART A & B MEDEX SUPPLEMENT MEDICARE PART A & B [employer] MEDEX SUPPLEMENT [employer] MEDEX SUPPLEMENT MEDICARE PART A & B Member Subscriber Plan / Payer (Ef fective 2020-Present) Name:Laina Valdes Member ID:[id number] Relation to Subscriber:Self Name:Laina Valdes Subscriber ID:[id number] Payer ID:[id number] Group ID:Not on file Type:Medicare Address: [employer] [facility]. [address] [place] [address] Care Teams Modern Dancer Relationship Specialty Start Date End Date Shaniqua Rockwell MD [address] [place] [address] [id number] PCP - General Internal Medicine 04/27/25 Nabor Power DO [address] [place] [id number] [email or web address] Geriatric Medicine 04/14/25 Rosibel Parish [facility] [address] [address] Nurse Practitioner 04/27/25 Additional Source Comments The information contained in this document represents components of the legal health record. It is not the complete legal health record.[facility]
--- OUTSIDE RECORDS SUMMARY | 2025-07-18 14:48 | XMS_ITS | Data Portability ---
Author Organization [place] [facility],, NELLY BURNETTE MD Address [address] [address] Care Team Providers Care Supervisor Parking Lot Name Role Phone NIK ONEAL OTHER Assessment No assessment recorded. Plan of Treatment Reminders Order Date Submit Date Provider Last Modified By Organization Details Last Modified Time Details Appointments None recorded. Lab pap test, thinprep, cervical 2016 017 [facility], Cytopathology Service, [address] [place], [address], 7 15:40:54 fecal occult blood, stool 2016 017 [facility] In-Office Order, Internal Use Only DO Not Attach Compendium DO Not Attach Compendium, Do Not Delete/merge, [id number] 7 09:17:58 cytology, Pap smear 2012 013 [facility], Cytopathology Service, [address] [place], [address], 3 05:14:34 occult blood, screen 2012 013 [facility] In-Office Order, Internal Use Only DO Not Attach Compendium DO Not Attach Compendium, Do Not Delete/merge, [id number] 3 05:14:35 Referral None recorded. Procedures None recorded. Surgeries None recorded. Imaging MAMMO, screening , digital, bilateral 2016 017 [facility], [address], [place], [address], 7 17:54:07 bone density 2016 017 [facility], [address], [place], [address], 7 16:57:16 MAMMO, screening , digital, bilateral 2012 013 [facility] Orders, [address], [place], [address], 3 17:29:56 bone density study 2012 013 [facility] Orders, [address], [place], [address], 3 17:28:50 Medication Orders raloxifen e 60 mg tablet 2016 017 INTERFACE [id number], [address], [place], [address], 7 15:28:12 Patient TargetsNo targets recorded. Patient Instructions Encounter Date Encounter Id Patient Instructions Last Modified By Organization Details Last Modified Time 02/15/2013 [id number] learning about breast cancer screening MARIA ISABEL [...] in detail. Not available 02/15/2013 15:51:22 03/22/2013 [id number] We discussed her new diagnosis of osteopenia. [...] 25 minutes. Not available 03/23/2013 11:30:45 12/01/2016 [id number] learning about m ood disorders tmeczywor Not [...] in detail. Not available 12/01/2016 09:36:08 01/16/2017 [id number] She is here to discuss her recent [...] DO Not Attach Compendium, Do Not Delete/merge, [id number] 12/01/2016 08:51:12 02/16/20 13 02/15/2013 occul t blood , carl n Occult Blood negati ve Not Available In-Office Order Internal Use Only DO Not Attach Compendium DO Not Attach Compendium, Do Not Delete/merge, [id number] 02/15/2013 14:32:49 02/16/20 13 02/15/2013 pap1c ase [id number] thinp rep Pap and cell block : [...] at the above addre ss. Not Available [facility], Cytopathology Service [address] [place], [address], 03/01/2013 14:57:21 12/02/19 17 12/01/2016 pap, LB [id number] ThinP rep Pap, Image d: NEGAT RAFFI FOR SQUAM OUS INTRA EPITH ELIAL LESIO N AND MALMORALES GUILLEN . Kelly Wynn ams, CT( CP) (Case elect maurice alfaro jeffrey d 12 03 2016) ADEQU ACY: Satis facto ry. Endoc ervic al/tr ansfo rmati on zone compo nent prese nt. SOURC E: ThinP rep Pap HPV IF ASCUS , Cervi serg, Image d: CLINI SERG INFOR MATIO N: HPV If Diagn osis of ASCUS . LPS 3 NEG Not Available [facility], Cyt[facility] Service [address] [place], [address], 12/03/2016 15:40:54 03/15/20 13 03/15/2013 MAMMO , scree mary, digit al, bilat eral No observ ation record ed. [facility] Orders [address], [place], [address], 03/16/2013 10:47:39 03/15/20 13 03/15/2013 bone densi ty study No observ ation record ed. [facility] Orders [address], [place], [address], 03/16/2013 10:47:40 03/18/20 13 03/15/2013 MAMMO , scree mary, digit al, bilat eral No observ ation record ed. [address] [facility] Orders [address], [place], [address], 03/18/2013 13:14:47 03/20/20 14 03/20/2014 imagi ng/di agnos tic resul t No observ ation record ed. [address] [facility] Orders [address], [place], [address], 03/20/2014 13:06:54 01/09/20 17 01/08/2017 bone densi ty No observ ation record ed. [facility] (Outpt Imaging) [address] [place], [address], 01/16/2017 14:58:37 01/09/20 17 01/08/2017 MAMMO , scree mary, digit al, bilat eral No observ ation record ed. [facility] (Outpt Imaging) [address] [place], [address], 01/16/2017 14:58:54 Result Notes None recorded. 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 Procedures Surgical History Date Name Laterality Status Provider Name and Address Organization Details Recorded Time 3 Most Recent Bone Density completed Elsa Saldana in [facility], 11/25/2016 14:09:08 5 Other completed Elsa Saldana in [facility], 02/15/2013 14:31:51 Imaging Results None recorded. Procedure [...] Available Not Available No t Available Afluria 1094-2311 (PF) 45 mcg(15 mcg x 3)/0.5 mL intramuscula r syringe inject 0.5 milliliter intramuscul lorraine active Not Available Not Available No t Available Vitals Date Recorded Heart rate Body weight Body height Body mass index (BMI) Systolic And Diastolic Provider Name and Address Organization Details Last Updated DateTime 12/01/2016 94 /min 64330.22 g 148.59 cm 23.2 kg/m2 125/77 mm[Hg] Laina Saldana in [facility], 12/01/2016 08:24:13 Date Recorded Body height Body weight Body mass index (BMI) Heart rate Systolic And Diastolic Provider Name and Address Organization Details Last Updated DateTime 01/16/2017 148.59 cm 42627.12 g 23.6 kg/m2 92 /min 133/80 mm[Hg] Elsa Saldana in [facility], 01/16/2017 14:55:50 Date Recorded Body height Body weight Body mass index (BMI) Heart rate Systolic And Diastolic Provider Name and Address Organization Details Last Updated DateTime 02/15/2013 152.4 cm 06270.62 6966 g 21.8 kg/m2 85 /min 107/77 mm[Hg] Elsa Hayden [place] - Les in [facility], 02/15/2013 14:31:51 Date Recorded Body height Body weight Body mass index (BMI) Heart rate Systolic And Diastolic Provider Name and Address Organization Details Last Updated DateTime 03/22/2013 152.4 cm 38614.72 3752 g 21.4 kg/m2 106 /min 108/73 mm[Hg] Elsa Saldana in [facility], 03/22/2013 13:49:13 Social History Question Answer Notes LastModified by Organizat ion Details LastModified Time Tobacco Smoking Status Never Smoker Not Available [facility] 06/19/2020 03:19:41 What Is Your Level Of Caffeine Consumption? None [id number] Information not available 06/19/2020 What Type Of Diet Are You Following? REGULAR [id number] Information not available 06/19/2020 Which Illicit Or Recreational Drugs Have You Used? No [id number] Information not available 06/19/2020 Do You Reside In Or Have You Traveled To An Area Where Ebola Virus Transmission Is Active? No [id number] Information not available 06/19/2020 Education 4 Year [...] available 02/15/2013 Are You Sexually Active? No [id number] Information not available 06/19/2020 How Much Tobacco Do You Smoke? No [id number] Information not available 06/19/2020 General Stress Level Medium Information not available 02/15/2013 How Many Years Have You Smoked Tobacco? 0 [id number] Information not available 06/19/2020 Have You Recently (within The Last 12 Weeks, Or During A Current ) Traveled To Or Lived In A Zika-affected Area? No [email or web address] Information not available 12/01/2016 Sex: Unknown Functional Status Question Answer Note LastModified by Organizat ion Details LastModified Time What is your level of alcohol consumption? 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 Occasional [id number] Information not available 06/19/2020 Mental Status None recorded. Family History Relationship Description Onset Age of this Age Resolved Age Notes LastModified by Organization Details LastModified Time Mother Malignant neoplastic disease skin (previ ously record ed as Cancer ) [email or web address] [id number] Not available 06/05/2013 03:01:00 Mother Alzheimer's disease [id number] [id number] Not available 06/05/2013 03:01:00 Father Problem cj ia (previ ously record ed as Other) [email or web address] [id number] Not available 06/05/2013 03:01:00 Father Malignant neoplastic disease skin (previ ously record ed as Cancer ) [email or web address] [id number] Not available 06/05/2013 03:01:00 Medical History Condition Response Anesthesia complications N High Blood Pressure N Candidate for MyRisk panel N Autoimmune Condition N Depression Y Lung Disease N Defects or Inherited Disease N History of Ovarian Cancer N BRCA testing in past N Anxiety Disorder Y Arthritis N Infertility N History of Cancer Y Endometriosis N Kidney or Bladder Problems N Thyroid Problems N GI Problems N Anemia N History of Breast Cancer N Osteopenia Y Psychiatric Illness Y Diabetes N Headaches or Migraines Y Asthma N Hepatitis N Heart Disease N Hypertension N Osteoporosis N [...] Time Tdap 08/17/2009 completed JOÃO Lindquist in [facility], 02/15/2013 14:31:51 influenza, unspecified formulation 08/17/2011 completed JOÃO Lindquist in [facility], 02/15/2013 14:31:51 influenza, unspecified formulation 05/18/2016 completed JOÃO Kelly in [facility], 12/01/2016 08:29:00 VZIG 05/19/2016 completed JOÃO Kelly in [facility], 12/01/2016 08:29:37 Past Encounters Encounter ID Performer Location Encounter Start Date Encounter Closed Date Diagnosis/Indication Diagnosis SNOMED-CT Code Diagnosis ICD10 Code Diagnosis IMO Codes Diagnosis Note [id number] MD NELLY Moore MD [address] [place] [address] 02/15/2013 14:07:53 02/15/2013 16:10:00 [id number] MD NELLY Moore MD [address] [address] [facility] [place] [address] 03/22/2013 13:43:59 03/23/2013 12:16:52 [id number] MD NELLY Moore MD [address] [place] [address] 12/01/2016 08:09:06 12/01/2016 11:53:08 Specialized medical examination 41326406 Z04.8 Screening for malignant neoplasm of rectum 893390751 Z12.12 Screening mammography 24 794825 Z12.31 Vitamin D deficiency 347 09772 E55.9 Depressive disorder 3548 9007 F32.0 Senile osteopenia 795178 06 M85.80 [id number] MD NELLY Moore MD [address] [place] [address] 01/16/2017 14:51:04 01/16/2017 16:02:16 Senile osteopenia 89118123 M85.852 Health Concerns Section Related Observation LastModified by Organization Detai ls LastModified Time None Recorded Concern Status LastModified by Organization Details LastModified Time None Recorded Advance Directives Directive None Recorded Payers Insurance Date Sequence Insurance Name Policy Number Policy Lebron Covered Member ID Lebron Member ID Guarantor Name 04/02/2022 1 *SELF PAY* 04/02/2022 1 [place] [id number] Laina Valdes [id number] Notes Date Note Type Note Provider Name and Address Organization Details Recorded Time 02/15/2013 text/html ROS as noted in the HPI Nelly Burnette MD [address], [place], [address], [place] [facility], 02/15/2013 15:57:29 03/22/2013 text/html ROS as noted in the HPI Nelly Burnette MD [address], [place], [address], [place] [facility], 03/23/2013 11:31:17 12/01/2016 text/html She is here for annual exam, has not been here since 2012. She feels well. She has a history of vitamin d deficiency and osteopenia, is due for a bone density. She does take vitramin d 2000 unitls on and off, not daily. Nelly Burnette MD [address], [place], [address], [place] [facility], 12/01/2016 09:36:35 01/16/2017 text/html She is here to discuss her recent bone density which showed progressively worsening osteopennia over the past 10 years. She has lost one inch in height so far. Nelly Burnette MD [address], [place], [address], [place] [facility], 01/16/2017 15:57:53 OBGyn Episode No OBEpisode recorded.
== END ==
LOC: HO.CARD 12:55
PROVIDERS: PCP Internal Medicine; Visit Provider Internal Medicine
DX: R01.1 Cardiac murmur, unspecified (principal)
CPT/HCPCS: 93306

== ENCOUNTER → 2025-07-18 12:57 | Outpatient (BNV) | payer MEDICARE, SELFPAY | PROVIDERS: PCP Internal Medicine; Visit Provider Internal Medicine | DX: R01.1 Cardiac murmur, unspecified (principal) | CPT/HCPCS: 93306 ==